=== PATIENT | female | born 2000 | race Caucasian/White ===

== ENCOUNTER 2022-02-05 17:56 | Inpatient (IN) ==
[2022-02-05] MEDS ORDERED: ACETAMINOPHEN 325 MG TAB PO STA (18:09)
[2022-02-05] MEDS ORDERED: SODIUM CHLORIDE 0.9% 500 ML IV STA (18:10)
[2022-02-05] MEDS ORDERED: ACETAMINOPHEN 325 MG TAB ONE (20:43)
[2022-02-05 21:27] LABS: Alanine Aminotransferase 9 U/L (7-52); Albumin Globulin Ratio 1.4 (0.9-2); Albumin Level 4.5 gm/dl (3.4-5.0); Alkaline Phosphatase 64 U/L (34-104); Anion Gap 12 (3-11); Aspartate Aminotransferase 14 U/L (13-39); Bilirubin,Total 0.6 mg/dl (0.2-1.0); Blood Urea Nitrogen 8 mg/dl (6-23); Calcium 9.1 mg/dl (8.5-10.1); Carbon Dioxide 21 mmol/L (21-32); Chloride 100 mmol/L (98-107); Est GFR (African American) 122.2 ml/min; Est GFR (Non-African American) 105.4 ml/min; Globulin 3.3 gm/dl (2.5-4.0); Glucose 90 mg/dl (70-99(Fasting)); Potassium 3.6 mmol/L (3.5-5.1); Sodium 133 mmol/L (136-145); Total Protein 7.8 gm/dl (6.0-8.3)
[2022-02-05] MEDS ORDERED: SODIUM CHLORIDE 0.9% 1000ML 2,000 ML IV ONE (21:30)
[2022-02-05] MEDS ORDERED: KETOROLAC TROMETHAMINE 15 MG/ML VIAL IV ONE (21:30)
[2022-02-05 21:34] LABS: Basophils # (auto) 0.02 K/uL (0-0.2); Basophils % (auto) 0.2 %; Hematocrit (blood only) 38.4 % (34.1-44.9); Immature Granulocytes # (auto) 0.04 K/uL (0.00-0.02); Immature Granulocytes % (auto) 0.3 %; Lymphocytes # (auto) 1.01 K/uL (1.2-3.4); Lymphocytes % (auto) 8.3 %; Mean Corpuscular Hemoglobin 27.8 pg (25.0-34.0); Mean Corpuscular Hgb Conc 33.9 g/dL (32.0-36.0); Mean Corpuscular Volume 82.2 fL (80.0-100.0); Mean Platelet Volume 11.2 fL (9.4-12.3); Monocytes # (auto) 0.99 K/uL (0.24-0.82); Monocytes % (auto) 8.2 %; Neutrophils # (auto) 10.08 K/uL (1.4-6.5); Platelet Count 216 K/uL (130-400); RDW Standard Deviation 39.2 fL (36.4-46.3); Red Blood Count 4.67 M/uL (3.93-5.22); White Blood Count 12.14 K/ul (4.8-10.8)
[2022-02-05] MEDS ORDERED: ONDANSETRON INJ 2 MG/ML 2 ML VIAL IV STA (21:36)
[2022-02-05] MEDS ORDERED: OPTIRAY 350 100ml IV ONE (22:03)
[2022-02-05 22:05] LABS: Appearance Urine Clear (Clear); Bacteria Urine Automated Negative (Negative); Bilirubin Urine Negative (Negative); Blood Urine Negative (Negative); Color Urine Yellow; Epithelial Cell Urine Auto >30 /lpf (0-5); Glucose Urine UA Negative (Negative); Ketones Urine 3+ (Negative); Leukocyte Esterase Urine 1+ (Negative); Nitrite Urine Negative (Negative); Protein Urine Trace (Negative); RBC Urine Automated 0-4 /hpf (0-4); Specific Gravity Urine 1.024 (1.000-1.030); Urobilinogen Urine Negative (Negative); pH Urine 5.5 (4.5-7.5)
[2022-02-05 23:03] LABS: Pregnancy Test, Urine Negative (Negative)
[2022-02-05 23:09] LABS: Influenza A virus by PCR Negative (Neg); Influenza B virus by PCR Negative (Neg); RSV by PCR Negative (Neg)
[2022-02-05 23:12] LABS: SARS CoV2 RNA(COVID-19) InHosp POSITIVE (Negative)
--- NOTE | 2022-02-05 23:21 | History & Physical Report ---
Date of Service February 05, 2022 Assessment & Plan (1) Fever: Plan: Due to the patient's clinical presentation and CT scan findings she will be admitted to the hospital proceeding as follows: Is not entirely clear if the patient is suffering from acute appendicitis We will therefore make her n.p.o. -Analgesics we provided -Antipyretics will be provided -Antiemetics we provided -We will hydrate her with IV fluids -We will repeat labs in the morning -At the present time we will hold antibiotics as we do not want him mask any underlying processes that may not have declared themselves. Patient will be reevaluated in the morning and based on her clinical exam and repeat laboratories a determination will be made if patient warrants an appendectomy Concerning patient's COVID infection supportive care will be employed as the patient is not requiring supplemental oxygen and her pulse ox is 97% on room air and she is not in any respiratory distress. (2) Abdominal pain: (3) COVID: History of Present Illness Chief Complaint: Fever Primary Care Provider: NO PCP This is a 22-year-old female who presented to the emergency department [facility] to fevers and generalized abdominal pain. Patient says that approximately 4 days ago she began developing a scratchy throa t with some congestion. Over the past 24 hours the patient said that she began to have fevers. She also developed some nausea and vomiting over the past 24 hours and has some generalized abdominal pain. Concerning her abdominal pain when asked where the location was she pointed to the left upper quadrant. She does not note any modifying factors to her abdominal pain. She notes that she has never had any abdominal surgeries in the past. The patient also notes that she has had some upper respiratory symptoms which also began approximately 24 hours ago where she has noted a cough as well as some congestion and some slight shortness of breath. She notes that no close contacts have been ill. She did receive a COVID vaccination. She does note that she did have a COVID infection 1 month ago. She has not yet received a flu vaccine. In the emergency department the patient had labs and imaging which I independently reviewed. CT scan of the abdomen pelvis showed the patient had a mildly prominent appendix which measured approximately 8.4 mm in diameter. There are also some inflammatory groundglass density nodule seen in the left lower lobe measuring up to 8.5 mm in diameter. CBC revealed white blood cell count was 12.1. Hemoglobin, hematocrit, and platelet count were within the normal range. Chemistry profile showed sodium was 133 with a normal potassium. BUN and creatinine were both within the normal range. There is no elevation of patient's LFTs, bilirubin, or alkaline phosphatase. Urinalysis was not indicative of infection. Urine test was negative. The patient did test positive for COVID. I question the patient about additional medical problems she may suffer from. She says that she does not have any additional medical problems specifically stating she does not have asthma The patient notes that she has never had any abdominal surgeries but did have a cyst taken off of her right upper arm and has also had a wisdom teeth taken out The patient says that she currently smokes as she vapes. At the time of my interview the patient was resting comfortably in bed and she was in no distress. She was saturating 97% on room air. She did have a pulse of 98 which was regular. Her respirations were 18 and nonlabored. She was noted to be febrile with a temperature of 37.9. Her blood pressure was 109/66 Allergies Allergy/AdvReac Type Severity Reaction Status Date / Time pollen extracts Allergy Intermediate ITCHY Verified 02/05/22 21:21 EYES, SNEEZING, CONGESTION Home Medications Medication Instructions Recorded Confirmed Type cholecalciferol (vitamin D3) 25 25 mcg PO DAILY 02/05/22 02/05/22 History mcg (1,000 unit) chewable tablet (Vitamin D3) multivitamin 1 tab PO DAILY 02/05/22 02/05/22 History Past Med/Surg History Social History Smoking Status: Current every day smoker Tobacco Type: E-cigarettes / Vaping Second Hand Exposure: No; Do You Dip or Chew Tobacco: No; Hx Alcohol Use: Yes Alcohol type: hard liquor Hx Substance Use: No Preferred Language: Japanese Communication Ability: Effective [employer] Customer Experience Advisor Required: No Beliefs That Will Affect Care: None Current Living Situation: Other Current Living Situation Comment: apartment, college student, has roomates Other Information That Helps Us Care for You: No Feels Safe at Home: Yes Safety Concerns: Feels Safe At This Time Assistive Devices: Other Assistive Devices Comment: contacts Review of Systems Constitutional: + fever, + chills and + body aches Eyes: no eye pain Ear, Nose, Mouth, Throat: no ear pain Respiratory: + cough, + chest congestion and + dyspnea Cardiovascular: no chest pain Gastrointestinal: + abdominal pain, + nausea and + vomiting Genitourinary: no dysuria Musculoskeletal: no back pain Integumentary: no rash Neurologic: no localized weakness Physical Exam Constitutional: WD/WN, vitals as above Eyes: no conjunctival abnormality ENMT: Ears: no hearing impairment and no external ear abnormality Mouth: no oropharynx abnormality Neck: trachea midline Respiratory: normal respiratory effort, lungs clear to auscultation Slight decrease of breath sounds noted bases. There is no wheezing noted. Cardiovascular: Rate/Rhythm: regular rate and regular rhythm Vessels: do rsalis pedis pulses present Gastrointestinal (Abdomen): Abdomen is soft and nondistended. It is nonrigid. There is no rebound tenderness or guarding. The patient did exhibit pain with palpation in the left lower quadrant and the right lower quadrant over McBurney's point. Musculoskeletal: No calf tenderness Skin: no rashes Neurologic: moves all extremities Psychiatric: A+Ox3, euthymic affect Results & Data Results & Data ([facility]) Vital Signs (Past 12 Hours) Vital Signs Temp Pulse Pulse Resp BP BP Pulse Ox 02/05/22 21:49 37.9 C H 98 H 18 109/66 97 02/05/22 20:46 39.1 C H 02/05/22 20:36 100 02/05/22 20:36 116 H 14 107/60 100 02/05/22 18:04 37.4 C 128 H 16 118/81 99 O2 Del Method 02/05/22 21:49 Room Air 02/05/22 20:46 02/05/22 20:36 Room Air 02/05/22 20:36 Room Air 02/05/22 18:04 Room Air PG Care Time/CCT Total # of Minutes Spent Total Time Spent with Patient: Total time spent is greater than 50% in coordination of care (as documented) at patient's floor/unit and/or counseling patient: Coding Level of Care Code 59640 Initial Inpt Care Lvl 3 Diagnoses Fever R50.9 Abdominal pain R10.9 COVID U07.1
[2022-02-05] MEDS ORDERED: ACETAMINOPHEN 1,000 MG/100 ML VIAL IV PRN (23:33)
[2022-02-06] MEDS: LACTATED RINGER'S 1,000 ML IV SCH ×3 (00:07→21:07)
--- NOTE | 2022-02-06 00:07 | Emergency Department Note ---
Impression & Plan Abdominal pain, Fever, COVID, Viral URI, Cough, Pneumonitis ED Provider Note NAME: CLEVELAND OBRIEN AGE: 22 SEX: F : 2000 ARRIVES VIA: Walk-In INFORMANT: Patient ED PROVIDER(S): Tony Downing DO CHIEF COMPLAINT: fever HPI: Patient is a 22-year-old female who presents the ER for symptoms that started this past Friday. She admits to a sore throat cough, congestion, runny nose. Over the past 24 hours she has been having vomiting and upset stomach wi th nausea. She denies any dysuria urgency or frequency. She notes that she did have COVID back last month. Fevers have been high as 101. She has been taking Motrin but that has not been keeping her fevers down. She had a negative COVID, strep and flu for [facility]. ROS: See above HPI for pertinent positives & negatives. A total of 10 systems reviewed and were otherwise negative. PAST MEDICAL HISTORY:See Below PAST SURGICAL HISTORY:See Below FAMILY HISTORY:See Below SOCIAL HISTORY:See Below HOME MEDICATIONS:See Below ALLERGIES:See Below VITALS:See Below PHYSICAL EXAMINATION: GENERAL: Sitting up in bed, alert, obese, slightly diaphoretic, disheveled EYE EXAM: normal conjunctiva. PERRL and EOM's grossly intact. OROPHARYNX:mucous membranes are dry NECK: supple, no nuchal rigidity, no adenopathy, non-tender LUNGS: Clear to auscultation. Normal chest wall mechanics HEART: Tachycardic, S1 normal and S2 normal ABDOMEN: abdomen soft, mild tenderness in right lower quadrant, normo-active bowel sounds, no masses, no rebound or guarding. UPPER EXTREMITIES: upper extremities are grossly normal. LOWER EXTREMITIES: No pitting edema. NEURO EXAM: Normal sensorium, cranial nerves II-XII grossly intact, normal speech, no gross weakness of arms, no gross weakness of legs. MEDICAL DECISION MAKING: Patient is a 22-year-old female with no significant past medical history that presents the ER for the above-stated complaint. IV was established blood was obtained. Labs show leukocytosis of 12,000. No significant anemia. BMP with mild hyponatremia 133. LFTs bilirubin was unremarkable. UA does suggest dehydration with ketones. Was contaminated with multiple epithelial cells. Patient is COVID-positive. Influenza and RSV are negative. Question if this is secondary to infection about 4 weeks ago versus new infection. This is over a month from her last COVID infection. Do favor that this is likely a new COVID infection. Two views of the chest xrays were unremarkable. CT of her abdomen pelvis was performed she did have some abdominal pain with new vomiting today. CT showed an [address] also showed inflammatory changes in the left lower lobe will defer to Gen Surg for treatment as if 2/2 to covid this is viral but could also be a PNA. Pt was discussed with Clement Lyon for further evaluation. General surgery elected to admit her and observe her overnight. Patient was given IV fluids as well as IV Toradol. Held on ABX and will defer to Gen surg. Triage Nursing notes reviewed. Limited review of prior medical records performed Vital Signs: reviewed and remarkable for tachy and febrile Differential diagnosis: Differential diagnosis includes etiologies such as sepsis, UTI, pneumonia, metabolic, electrolyte abnormalities, cardiac sources, intracerebral event, toxicologic, neurological, as well as others were entertained. ER treatment provided: See below Diagnostics interpreted by me: ECG: Sinus tachycardia rate of 117 Normal axis No PVCs Nonspecific ST wave changes V2 and V3 QTC 46 Cardiac Monitoring: An order was placed for continuous cardiac monitoring. The monitor shows a rate of 114 with sinus rhythm. Laboratory studies: As stated above and show below. Imaging studies: CT of the chest showed large distended appendix with subtle infiltrates in the left lower lobe Chest x-ray as described above Consultation(s): Discussed with general surgery been started for further evaluation patient was admitted for further work-up Procedures: none Critical Care: None Past Med/Surg History Social History Smoking Status: Current every day smoker Tobacco Type: E-cigarettes / Vaping Preferred Language: Lao Feels Safe at Home: Yes Allergies Allergies Allergy/AdvReac Type Severity Reaction Status Date / Time pollen extracts Allergy Intermediate ITCHY Verified 02/05/22 21:21 EYES, SNEEZING, CONGESTION Home Meds Home Medications Medication Instructions Recorded Confirmed cholecalciferol (vitamin D3) 25 25 mcg PO DAILY 02/05/22 02/05/22 mcg (1,000 unit) chewable tablet (Vitamin D3) multivitamin 1 tab PO DAILY 02/05/22 02/05/22 Results & Data (ED) Vital Signs Vital Signs - 24 hr 02/05/22 18:04 02/05/22 20:36 02/05/22 20:36 Temperature 37.4 C Temperature Source Temporal Artery Scan Pulse Rate 128 H Pulse Rate [Finger] 116 H Pulse Rhythm Regular Pulse Rhythm [Finger] Regular Pulse Strength Normal Pulse Strength [Finger] Normal Respiratory Rate 16 14 Respiratory Effort / Characteristics Non-Labored Non-Labored Spontaneous Respiratory Depth Normal Normal Respiratory Pattern Regular Blood Pressure 118/81 Blood Pressure [Left Arm] 107/60 Blood Pressure Mean 93 Blood Pressure Mean [Left Arm] 75 Blood Pressure Position [Left Arm] Pulse Oximetry 99 100 100 Oxygen Delivery Method Room Air Room Air Room Air Sepsis Recent Fever Within 48 Hours No Sepsis New/Unexplained Change in Mental Status No Sepsis Action Taken by Nursing No Action Required 02/05/22 20:46 02/05/22 21:49 02/05/22 23:20 Temperature 39.1 C H 37.9 C H 37.1 C Temperature Source Oral Oral Oral Pulse Rate Pulse Rate [Finger] 98 H 98 H Pulse Rhythm Pulse Rhythm [Finger] Regular Pulse Strength Pulse Strength [Finger] Normal Respiratory Rate 18 12 Respiratory Effort / Characteristics Non-Labored Spontaneous Non-Labored Spontaneous Respiratory Depth Normal Normal Respiratory Pattern Regular Regular Blood Pressure Blood Pressure [Left Arm] 109/66 101/66 Blood Pressure Mean Blood Pressure Mean [Left Arm] 80 77 Blood Pressure Position [Left Arm] Sitting Pulse Oximetry 97 99 Oxygen Delivery Method Room Air Room Air Sepsis Recent Fever Within 48 Hours Sepsis New/Unexplained Change in Mental Status Sepsis Action Taken by Nursing Laboratory Data Result diagrams: 02/05/22 20:41 02/05/22 20:41 Lab Results 02/05/22 02/05/22 02/05/22 Range/Units 20:41 20:41 21:36 WBC 12.14 H (4.8-10.8) K/ul RBC 4.67 (3.93-5.22) M/uL Hgb 13.0 (12.0-16.0) g/dl Hct 38.4 (34.1-44.9) % MCV 82.2 (80.0-100.0) fL MCH 27.8 (25.0-34.0) pg MCHC 33.9 (32.0-36.0) g/dL RDW Std Deviation 39.2 (36.4-46.3) fL RDW Coeff of Lona 13.0 (11.5-14.5) % Plt Count 216 (130-400) K/uL MPV 11.2 (9.4-12.3) fL Immature Gran % (Auto) 0.3 % Neut % (Auto) 83.0 % Lymph % (Auto) 8.3 % [place] % (Auto) 8.2 % Eos % (Auto) 0.0 % Baso % (Auto) 0.2 % Neut # (Auto) 10.08 H (1.4-6.5) K/uL Lymph # (Auto) 1.01 L (1.2-3.4) K/uL [place] # (Auto) 0.99 H (0.24-0.82) K/uL Eos # (Auto) 0.00 (0-0.50) K/uL Baso # (Auto) 0.02 (0-0.2) K/uL Immature Gran # (Auto) 0.04 H (0.00-0.02) K/uL Sodium 133 L (136-145) mmol/L Potassium 3.6 (3.5-5.1) mmol/L Chloride 100 (98-107) mmol/L Carbon Dioxide 21 (21-32) mmol/L Anion Gap 12 H (3-11) BUN 8 (6-23) mg/dl Creatinine 0.80 (0.6-1.2) mg/dl Est Cr Clr Drug Dosing Not Reportable Est GFR ( Amer) 122.2 ml/min Est GFR (Non-Af Amer) 105.4 ml/min BUN/Creatinine Ratio 10.0 (10-20) Glucose 90 (70-99(Fasting)) mg/dl Calcium 9.1 (8.5-10.1) mg/dl Total Bilirubin 0.6 (0.2-1.0) mg/dl AST 14 (13-39) U/L ALT 9 (7-52) U/L Alkaline Phosphatase 64 (34-104) U/L Total Protein 7.8 (6.0-8.3) gm/dl Albumin 4.5 (3.4-5.0) gm/dl Globulin 3.3 (2.5-4.0) gm/dl Albumin/Globulin Ratio 1.4 (0.9-2) Urine Color Yellow Urine Appearance Clear (Clear) Urine pH 5.5 (4.5-7.5) Ur Specific [place] 1.024 (1.000-1.030) Urine Protein Trace H (Negative) Urine Glucose (UA) Negative (Negative) Urine Ketones 3+ H (Negative) Urine Blood Negative (Negative) Urine Nitrite Negative (Negative) Urine Bilirubin Negative (Negative) Urine Urobilinogen Negative (Negative) Ur Leukocyte Esterase 1+ H (Negative) Urine WBC (Auto) 1-5 (0-5) /hpf Urine RBC (Auto) 0-4 (0-4) /hpf U Hyaline Cast (Auto) 1-5 (0-5) /lpf U Epithel Cells (Auto) >30 H (0-5) /lpf Urine Bacteria (Auto) Negative (Negative) Urine Test (Negative) SARS-CoV-2 (PCR) (Negative) Influenza Type A (PCR) (Neg) Influenza Type B (PCR) (Neg) RSV (RT-PCR) (Neg) 02/05/22 02/05/22 Range/Units 21:36 21:36 WBC (4.8-10.8) K/ul RBC (3.93-5.22) M/uL Hgb (12.0-16.0) g/dl Hct (34.1-44.9) % MCV (80.0-100.0) fL MCH (25.0-34.0) pg MCHC (32.0-36.0) g/dL RDW Std Deviation (36.4-46.3) fL RDW Coeff of Lona (11.5-14.5) % Plt Count (130-400) K/uL MPV (9.4-12.3) fL Immature Gran % (Auto) % Neut % (Auto) % Lymph % (Auto) % [place] % (Auto) % Eos % (Auto) % Baso % (Auto) % Neut # (Auto) (1.4-6.5) K/uL Lymph # (Auto) (1.2-3.4) K/uL [place] # (Auto) (0.24-0.82) K/uL Eos # (Auto) (0-0.50) K/uL Baso # (Auto) (0-0.2) K/uL Immature Gran # (Auto) (0.00-0.02) K/uL Sodium (136-145) mmol/L Potassium (3.5-5.1) mmol/L Chloride (98-107) mmol/L Carbon Dioxide (21-32) mmol/L Anion Gap (3-11) BUN (6-23) mg/dl Creatinine (0.6-1.2) mg/dl Est Cr Clr Drug Dosing Est GFR ( Amer) ml/min Est GFR (Non-Af Amer) ml/min BUN/Creatinine Ratio (10-20) Glucose (70-99(Fasting)) mg/dl Calcium (8.5-10.1) mg/dl Total Bilirubin (0.2-1.0) mg/dl AST (13-39) U/L ALT (7-52) U/L Alkaline Phosphatase (34-104) U/L Total Protein (6.0-8.3) gm/dl Albumin (3.4-5.0) gm/dl Globulin (2.5-4.0) gm/dl Albumin/Globulin Ratio (0.9-2) Urine Color Urine Appearance (Clear) Urine pH (4.5-7.5) Ur Specific [place] (1.000-1.030) Urine Protein (Negative) Urine Glucose (UA) (Negative) Urine Ketones (Negative) Urine Blood (Negative) Urine Nitrite (Negative) Urine Bilirubin (Negative) Urine Urobilinogen (Negative) Ur Leukocyte Esterase (Negative) Urine WBC (Auto) (0-5) /hpf Urine RBC (Auto) (0-4) /hpf U Hyaline Cast (Auto) (0-5) /lpf U Epithel Cells (Auto) (0-5) /lpf Urine Bacteria (Auto) (Negative) Urine Test Negative (Negative) SARS-CoV-2 (PCR) POSITIVE A* (Negative) Influenza Type A (PCR) Negative (Neg) Influenza Type B (PCR) Negative (Neg) RSV (RT-PCR) Negative (Neg) Administered Medications Discontinued Medications Acetaminophen (Acetaminophen 325 Mg Tab) 650 mg PO NOW STA Stop: 02/05/22 18:10 Last Admin: 02/05/22 20:45 Dose: 650 mg Documented By: MYKEL Acetaminophen (Acetaminophen 325 Mg Tab) Confirm Administered Dose 650 mg .ROUTE .STK-MED ONE Stop: 02/05/22 20:44 Last Admin: 02/05/22 20:45 Dose: Not Given Documented By: MYKEL Sodium Chloride (Nss) 500 mls @ 999 mls/hr IV .Q31M STA Stop: 02/05/22 18:40 Last Infusion: 02/05/22 21:55 Dose: 0 mls/hr Documented By: Admin: 02/05/22 20:41 Dose: 999 mls/hr Documented By: MYKEL Sodium Chloride (Nss 1000ml) 2,000 mls @ 999 mls/hr IV .Q2H1M ONE Stop: 02/05/22 23:30 Last Admin: 02/05/22 21:44 Dose: 999 mls/hr Documented By: MYKEL Ioversol (Optiray 350 100ml) 81 ml IV ONCE ONE Stop: 02/05/22 22:04 Last Admin: 02/05/22 22:04 Dose: 81 ml Documented By: LALITA Ketorolac Tromethamine (Ketorolac Tromethamine 15 Mg/Ml Vial) 15 mg IV NOW ONE Stop: 02/05/22 21:31 Last Admin: 02/05/22 21:44 Dose: 15 mg Documented By: MYKEL Ondansetron HCl (Ondansetron Inj 2 Mg/Ml 2 Ml Vial) 4 mg IV NOW STA Stop: 02/05/22 21:37 Last Admin: 02/05/22 21:44 Dose: 4 mg Documented By: MYKEL Discharge Plan Visit Data Chief Complaint: Fever Stated Complaint: SORE THROAT, FEVER, CONGESTED ED Provider: Tony Downing Discharge Problem: Abdominal pain, Fever, COVID, Viral URI, Cough, Pneumonitis Forms Stand Alone Forms: [facility] Prescriptions Prescriptions: No Action multivitamin Tablet 1 tab PO DAILY cholecalciferol (vitamin D3) [Vitamin D3] 25 mcg (1,000 unit) Tablet,Chewable 25 mcg PO DAILY Referrals Referrals: [facility] [Primary Care Provider] -
[2022-02-06] MEDS ORDERED: Flu Vaccine (Fluarix) 0.5mL SYR (Standard Dose) IM ONE (06:00)
[2022-02-06 06:26] LABS: Basophils # (auto) 0.03 K/uL (0-0.2); Basophils % (auto) 0.3 %; Eosinophils # (auto) 0.02 K/uL (0-0.50); Eosinophils % (auto) 0.2 %; Hematocrit (blood only) 33.6 % (34.1-44.9); Hemoglobin 11.5 g/dl (12.0-16.0); Immature Granulocytes # (auto) 0.05 K/uL (0.00-0.02); Immature Granulocytes % (auto) 0.5 %; Lymphocytes # (auto) 1.24 K/uL (1.2-3.4); Lymphocytes % (auto) 11.5 %; Mean Corpuscular Hemoglobin 28.8 pg (25.0-34.0); Mean Corpuscular Hgb Conc 34.2 g/dL (32.0-36.0); Mean Platelet Volume 10.7 fL (9.4-12.3); Monocytes # (auto) 1.14 K/uL (0.24-0.82); Monocytes % (auto) 10.5 %; Neutrophils # (auto) 8.34 K/uL (1.4-6.5); Platelet Count 175 K/uL (130-400); RDW Coefficient of Variation 13.1 % (11.5-14.5); RDW Standard Deviation 40.1 fL (36.4-46.3); White Blood Count 10.82 K/ul (4.8-10.8)
[2022-02-06 07:07] LABS: BUN Creatinine Ratio 10.1 (10-20); Creatinine Clr Calc Pharmacy 143.1 ml/min; Est GFR (African American) 144.2 ml/min; Est GFR (Non-African American) 124.4 ml/min; Potassium 3.4 mmol/L (3.5-5.1)
--- NOTE | 2022-02-06 07:22 | XRay Report ---
XR chest 2V PA/lateral CLINICAL HISTORY: cough and fever TECHNIQUE: 2 views of the chest were obtained. Comparison: None available at the time of this dictation. FINDINGS: No lines and tubes are seen. The cardiomediastinal silhouette is normal. The lungs are clear. No evid ence of pleural effusion or pneumothorax. IMPRESSION: No acute abnormalities and in particular no evidence of pneumonia. ACT 112: Negative or not required by law. Electronically signed by: Yaw Roberts M.D. 02/06/2022 7:21 AM
--- NOTE | 2022-02-06 07:38 | CT Scan Report ---
ABDOMEN AND PELVIS CT WITH IV CONTRAST CT DOSE: 690.87 mGy.cm HISTORY: Acute upper abdominal pain with nausea, vomiting and fever vomiting fever TECHNIQUE: Multiaxial CT images of the abdomen and pelvis were performed following the IV administrat ion of 81 cc of Optiray, A dose lowering technique was utilized adhering to the principles of ALARA. COMPARISON STUDY: Chest radiograph of same day FINDINGS: Mild nodular consolidative and groundglass opacities of the left lung base. No pneumatosis or pneumoperitoneum. The spleen measures within the upper limits of normal in size at 13 cm. Unremark able pancreas, gallbladder, adrenal glands and liver. Patency of the hepatic and portal veins. Unremarkable kidneys. No hydronephrosis. Decompressed urinary bladder with wall thickening. Unremarka ble uterus and adnexa. Dominant left ovarian follicle. Small amount of free pelvic fluid. Unremarkabl e aorta and IVC. No lymphadenopathy. No bowel obstruction or bowel wall thickening. Mild colonic fecal retention. The appendix is fluid-fi lled and mildly dilated measuring up to 8 mm. Trace periappendiceal stranding. Unremarkable soft tiss ues. No acute fracture. IMPRESSION: 1. Fluid-filled mildly dilated appendix is suspicious for early acute appendicitis. Correlate with cl inical exam findings and laboratory analysis. 2. No pneumoperitoneum or abscess. 3. Mild patchy left lung base opacities are suggestive of pneumonia. 4. Small volume free pelvic fluid. ACT 112: Negative or not required by law. The above report was generated using voice recognition software. It may contain grammatical, syntax o r spelling errors. Electronically signed by: Hany Eastman M.D. 02/06/2022 7:35 AM
[2022-02-06] MEDS: ACETAMINOPHEN 325 MG TAB PO PRN ×3 (08:42→21:18)
[2022-02-06] MEDS ORDERED: SODIUM CHLORIDE 0.9% 1000ML 1,000 ML IV ONE (10:44)
--- NOTE | 2022-02-06 10:44 | Surgery Progress Note ---
Date of Service February 06, 2022 Assessment & Plan (1) Viral URI: (2) COVID: (3) Fever: Plan: On physical exam and clinically she has no evidence of appendicitis even though CT scan findings are suspicious for early appendicitis. Her only symptoms are upper respiratory. She does have a leukocytosis although this improved overnight without any antibiotics. She is still tachycardic with a high fever. I am going to keep her for IV fluids and symptom control. I want to keep her off of antibiotics. If she begins having any abdominal symptoms or if she gets a higher leukocytosis we may need to consider laparoscopy versus repeat CT scan or ultrasound tomorrow. I will let her start with some clear liquids and see how she does today. Continue IV fluids. (4) Pneumonitis: Admission and Anticipated Discharge Date Admission Date: February 05, 2022 Subjective Patient seen. She is telling me that she is feeling better than she was the last 2 days. Her main issue is sinus congestion and drainage. Her main issue over the past several days was fever as well as sore throat. She is currently denying any abdominal pain or nausea. Physical Exam Constitutional: WD/WN, vitals as above no acute distress and not ill appearing Eyes: PERRL, conjunctivae normal, anicteric sclerae EOM intact bilaterally ENMT: external ear and nose normal, oropharynx normal Ears: no hearing impairment Neck: trachea midline, no thyromegaly Respiratory: normal respiratory effort; no respiratory distress and does not use accessory muscles Cardiovascular: Rate/Rhythm: regular rate and regular rhythm Gastrointestinal (Abdomen): normal bowel sounds, soft, nontender, no hepatosplenomegaly No tenderness. Negative Rovsing sign. No pain at McBurney's point. No rebound. Skin: no rashes, warm and dry Psychiatric: Orientation: alert, oriented x 3 and cooperative Results & Data ([facility]) Vital Signs (Past 12 Hours) Vital Signs Temp Pulse Resp BP Pulse Ox O2 Del Method 02/06/22 08:41 39.1 C H 116 H 18 107/51 L 99 Room Air 02/06/22 03:01 Room Air 02/06/22 03:01 37 C 93 H 18 105/71 100 Room Air 02/06/22 01:05 Room Air 02/06/22 00:08 37 C 94 H 14 104/58 L 99 Room Air 02/05/22 23:20 37.1 C 98 H 12 101/66 99 Room Air PG Care Time/CCT Total # of Minutes Spent Total Time Spent with Patient: Total time spent is greater than 50% in coordination of care (as documented) at patient's floor/unit and/or counseling patient: Coding Level of Care Code 24072 Subseq Hosp Care Lvl 3 Diagnoses Viral URI J06.9 COVID U07.1 Fever R50.9 Pneumonitis J18.9
[2022-02-06] MEDS ORDERED: COUGH DROP (SUGAR FREE) LOZ 24 LOZ/1 BOX BUCCAL ONE (16:45)
[2022-02-06] MEDS: ONDANSETRON INJ 2 MG/ML 2 ML VIAL IV PRN (16:48)
[2022-02-07] MEDS ORDERED: ACETAMINOPHEN 1,000 MG/100 ML VIAL IV ONE (02:45)
[2022-02-07] MEDS: ONDANSETRON INJ 2 MG/ML 2 ML VIAL IV PRN ×2 (03:08→15:22)
[2022-02-07] MEDS: LACTATED RINGER'S 1,000 ML IV SCH ×4 (04:37→21:04)
--- NOTE | 2022-02-07 05:12 | Electrocardiogram Report ---
Test Reason : Blood Pressure : / mmHG Vent. Rate : 117 BPM Atrial Rate : 117 BPM P-R Int : 140 ms QRS Dur : 084 ms QT Int : 306 ms P-R-T Axes : 055 070 015 degrees QTc Int : 426 ms Poor data quality, interpretation may be adversely affected Sinus tachycardia Nonspecific ST and T wave abnormality Abnormal ECG No previous ECGs available Confirmed by Kendall Velazquez ([id number]) on 02/07/2022 5:12:04 AM Referred By: REFERRED SELF Confirmed By:Kendall Velazquez
[2022-02-07 06:29] LABS: Basophils # (auto) 0.02 K/uL (0-0.2); Basophils % (auto) 0.2 %; Eosinophils # (auto) 0.02 K/uL (0-0.50); Eosinophils % (auto) 0.2 %; Hematocrit (blood only) 32.6 % (34.1-44.9); Hemoglobin 10.8 g/dl (12.0-16.0); Immature Granulocytes # (auto) 0.03 K/uL (0.00-0.02); Immature Granulocytes % (auto) 0.3 %; Lymphocytes # (auto) 1.06 K/uL (1.2-3.4); Mean Corpuscular Hemoglobin 27.9 pg (25.0-34.0); Mean Corpuscular Hgb Conc 33.1 g/dL (32.0-36.0); Mean Corpuscular Volume 84.2 fL (80.0-100.0); Mean Platelet Volume 10.6 fL (9.4-12.3); Monocytes # (auto) 0.93 K/uL (0.24-0.82); Monocytes % (auto) 8.8 %; Neutrophils # (auto) 8.54 K/uL (1.4-6.5); Neutrophils % (auto) 80.5 %; Platelet Count 162 K/uL (130-400); Red Blood Count 3.87 M/uL (3.93-5.22)
[2022-02-07] MEDS: ACETAMINOPHEN 325 MG TAB PO PRN ×3 (10:15→23:05)
--- NOTE | 2022-02-07 12:38 | Surgery Progress Note ---
Date of Service February 07, 2022 Assessment & Plan (1) Viral URI: Plan: No clinical indications of appendicitis. White blood cell count now normal. No abdominal pain. I do believe her main issue is a systemic viral infection. We will continue supportive care in the form of IV fluids symptom control. We will add something for her loose bowel movements as well as her cough. Not ready for discharge yet. I did discuss care with her mother. (2) Cough: (3) Pneumonitis: (4) COVID: (5) Fever: Admission and Anticipated Discharge Date Admission Date: February 05, 2022 Subjective Patient seen. No new complaints. Primary complaints continue to be upper respiratory with congestion cough and fever. She continues to deny abdominal pain. She did have some diarrhea multiple last night. Physical Exam Constitutional: Alert. No acute distress. Appears fatigued. Eyes: PERRL, conjunctivae normal, anicteric sclerae EOM intact bilaterally ENMT: Dry mucous membranes Neck: trachea midline, no thyromegaly Respiratory: normal respiratory effort; no respiratory distress and does not use accessory muscles Cardiovascular: Regular rhythm. Sinus tachycardia. Gastrointestinal (Abdomen): Soft. Nontender. No guarding. No rebound. Skin: no rashes, warm and dry Psychiatric: Orientation: alert, oriented x 3 and cooperative Results & Data ([facility]) Vital Signs (Past 12 Hours) Vital Signs Temp Pulse Resp BP Pulse Ox O2 Del Method 02/07/22 12:29 39 C H 02/07/22 10:15 39.3 C H 02/07/22 08:52 38.1 C H 101 H 18 114/77 98 Room Air PG Care Time/CCT Total # of Minutes Spent Total Time Spent with Patient: Total time spent is greater than 50% in coordination of care (as documented) at patient's floor/unit and/or counseling patient: Coding Level of Care Code 03692 Subseq Hosp Care Lvl 2 Diagnoses Viral URI J06.9 Cough R05.9 Pneumonitis J18.9 COVID U07.1 Fever R50.9
[2022-02-07] MEDS: IBUPROFEN 200 MG TAB PO PRN ×2 (14:02→21:03)
[2022-02-07] MEDS ORDERED: SODIUM CHLORIDE 0.9% 1000ML 1,000 ML IV ONE (15:44)
[2022-02-07] MEDS: CHOLESTYRAMINE LIGHT 4 GM PKT PO SCH (21:03)
[2022-02-08] MEDS: ACETAMINOPHEN 325 MG TAB PO PRN ×2 (03:31→14:54)
[2022-02-08] MEDS ORDERED: ONDANSETRON 4 MG OD TAB PO PRN (03:43)
[2022-02-08] MEDS: IBUPROFEN 200 MG TAB PO PRN (04:32)
[2022-02-08 08:02] LABS: Basophils # (auto) 0.02 K/uL (0-0.2); Basophils % (auto) 0.3 %; Eosinophils # (auto) 0.06 K/uL (0-0.50); Eosinophils % (auto) 0.8 %; Hematocrit (blood only) 32.1 % (34.1-44.9); Hemoglobin 10.7 g/dl (12.0-16.0); Immature Granulocytes # (auto) 0.04 K/uL (0.00-0.02); Immature Granulocytes % (auto) 0.5 %; Lymphocytes # (auto) 1.01 K/uL (1.2-3.4); Lymphocytes % (auto) 13.4 %; Mean Corpuscular Hemoglobin 27.7 pg (25.0-34.0); Mean Corpuscular Hgb Conc 33.3 g/dL (32.0-36.0); Mean Corpuscular Volume 83.2 fL (80.0-100.0); Mean Platelet Volume 10.7 fL (9.4-12.3); Monocytes # (auto) 0.74 K/uL (0.24-0.82); Monocytes % (auto) 9.8 %; Neutrophils # (auto) 5.65 K/uL (1.4-6.5); Neutrophils % (auto) 75.2 %; Platelet Count 154 K/uL (130-400); RDW Coefficient of Variation 13.1 % (11.5-14.5); RDW Standard Deviation 39.5 fL (36.4-46.3); Red Blood Count 3.86 M/uL (3.93-5.22); White Blood Count 7.52 K/ul (4.8-10.8)
[2022-02-08 08:34] LABS: BUN Creatinine Ratio 4.6 (10-20); Creatinine Clr Calc Pharmacy 151.9 ml/min; Est GFR (African American) 147.1 ml/min; Est GFR (Non-African American) 126.9 ml/min; Potassium 3.2 mmol/L (3.5-5.1)
[2022-02-08] MEDS: CHOLESTYRAMINE LIGHT 4 GM PKT PO SCH (08:56)
--- NOTE | 2022-02-08 10:28 | Surgery Progress Note ---
Date of Service February 08, 2022 Assessment & Plan (1) COVID: Plan: Pt here with Covid, question of dilated appendix on CT scan. Otherwise no clinical findings of acute appendicitis WBC normal off abx. Abdominal exam benign Majority of symptoms appear related to viral illness. She continues to be febrile, receiving intermittent APAP/ibuprofen. Zofran for nausea IV fell out last night without success replacing at this time. She is tolerating some clear liquids at this time Discussed patient's hospitalization with the medicine physicians for their assistance If stable for discharge from their standpoint we are okay with that Patient continues to have symptoms regarding an upper respiratory infection. We discussed with medicine who recommends starting Zithromax. They feel she is stable for discharge. Certainly from a surgical perspective there is nothing currently going on. Will discharge home today with Zithromax. She should follow-up with her PCP early next week. Admission and Anticipated Discharge Date Admission Date: February 05, 2022 Subjective Patient with continued respiratory complaints, cough, congestion, fevers. Diarrhea improving. No abdominal pain. Intermittent nausea with vomiting. Physical Exam Physical Exam: awake/alert Gastrointestinal (Abdomen): Percussion/Palpation: abdomen soft; abdomen nontender Results & Data ([facility]) Vital Signs (Past 12 Hours) Vital Signs Temp Pulse Resp BP Pulse Ox O2 Del Method 02/08/22 08:49 36.8 C 92 H 18 100/68 97 Room Air 02/08/22 06:16 37.3 C 02/08/22 04:32 39.1 C H 02/08/22 03:32 39.4 C H 02/08/22 00:05 39.4 C H 02/08/22 01:59 39.1 C H 02/07/22 23:04 39.3 C H PG Care Time/CCT Total # of Minutes Spent Total Time Spent with Patient: Total time spent is greater than 50% in coordination of care (as documented) at patient's floor/unit and/or counseling patient: Coding Level of Care Code 38952 Subseq Hosp Care Lvl 3 Diagnoses COVID U07.1
[2022-02-08] MEDS ORDERED: AZITHROMYCIN 250 MG TAB PO ONE (10:45)
--- NOTE | 2022-02-08 19:29 | Discharge Summary ---
Date of Service February 08, 2022 Admission HPI Per Admitting Provider This is a 22-year-old female who presented to the emergency department [facility] to fevers and generalized abdominal pain. Patient says that approximately 4 days ago she began developing a scratchy throat with some congestion. Over the past 24 hours the patient said that she began to have fevers. She also developed some nausea and vomiting over the past 24 hours and has some generalized abdominal pain. Concerning her abdominal pain when asked where the location was she pointed to the left upper quadrant. She does not note any modifying factors to her abdominal pain. She notes that she has never had any abdominal surgeries in the past. The patient also notes that she has had some upper respiratory symptoms which also began approximately 24 hours ago where she has noted a cough as well as some congestion and some slight shortness of breath. She notes that no close contacts have been ill. She did receive a COVID vaccination. She does note that she did have a COVID infection 1 month ago. She has not yet received a flu vaccine. In the emergency department the patient had labs and imaging which I independently reviewed. CT scan of the abdomen pelvis showed the patient had a mildly prominent appendix which measured approximately 8.4 mm in diameter. There are also some inflammatory groundglass density nodule seen in the left lower lobe measuring up to 8.5 mm in diameter. CBC revealed white blood cell count was 12.1. Hemoglobin, hematocrit, and platelet count were within the normal range. Chemistry profile showed sodium was 133 with a normal potassium. BUN and creatinine were both within the normal range. There is no elevation of patient's LFTs, bilirubin, or alkaline phosphatase. Urinalysis was not indicative of infection. Urine test was negative. The patient did test positive for COVID. I question the patient about additional medical problems she may suffer from. She says that she does not have any additional medical problems specifically stating she does not have asthma The patient notes that she has never had any abdominal surgeries but did have a cyst taken off of her right upper arm and has also had a wisdom teeth taken out The patient says that she currently smokes as she vapes. At the time of my interview the patient was resting comfortably in bed and she was in no distress. She was saturating 97% on room air. She did have a pulse of 98 which was regular. Her respirations were 18 and nonlabored. She was noted to be febrile with a temperature of 37.9. Her blood pressure was 109/66 Principal Diagnosis Pneumonia Discharge Exam In general she is awake and alert pleasant no distress. HEENT normocephalic atraumatic mucous membranes moist. Breathing unlabored, lungs show a degree of rhonchi base left, no wheezes no accessory muscle use. Some degree of coughing nonproductive. Cardio is regular with no rubs murmurs or gallops. Skin without rashes pallor or icterus. Neuro shows cranial nerves II through XII be grossly intact gross motor and sensory intact Discharge Data Allergies Allergy/AdvReac Type Severity Reaction Status Date / Time pollen extracts Allergy Intermediate ITCHY Verified 02/05/22 21:21 EYES, SNEEZING, CONGESTION Consultations 02/08/22 08:51 Consult Hospitalist Routine Ordered Studies 02/05/22 21:36 CT Abd and Pelvis [CT abd pelvis IV con only] Stat Hospital Course (1) Pneumonia: Asked to see by surgical teamthey have been following her for several days for possible appendicitis and felt her abdomen is quite benign, but was worried that her fever and viral illness may require further treatment. Evaluated patient in depth and at lengthdischarge instructions outlined our conversations quite well. I suspect she has a pneumonia, given that she had COVID about 6 weeks ago and had URI symptoms at the time, around the time of known exposure, I suspect the current PCR is more of a lingering positive. Since she is flu and RSV negative, while another viral pneumonia certainly possible, we discussed risk/benefit and I did wonder if she has a mild secondary bacterial overgrowth pneumonia superimposed which is causing her acute illnessafter discussing risk benefit, we all agreed to treat with antibiotics.*Safe to go homeshe was able to drink well enough to stay well-hydrated is hemodynamically stable, and after weighing options of initiating treatment here and ongoing observation versus going home, she opted to go home. See discharge instructions for further details, safe/stable for home, greater than 30 minutes. Total Time Total Time Spent Total Time Spent (In Minutes): Greater than 30 Discharge Plan Discharge Items Patient Disposition: Home - Self-Care Reason For Visit: FEVER, ABDOMINAL PAIN Discharge Diagnosis: covid abdominal pain Activity: Per Instructions section Lifting: Gradually increase as tolerated Bathing: No limitations Exercise/Sports: Gradually increase as tolerated Driving/Machine Use: Resume 1 day after discharge Non-emergency contact: Primary Care Provider Call non-emergency contact if: you have any medication questions, your symptoms worsen and your pain is not controlled Follow-up/Referrals: [facility] [Primary Care Provider] - (YOU NEED TO MAKE AN APPOINTMENT WITH [facility] WITHIN 7-10 BUSINESS DAYS FOR A HOSPITAL FOLLOW UP.) Diet: Regular Addtl Attending Provider Instructions: Pneumonia -As we discussed, it looks like the main thing causing the fevers cough/etc. is a pneumonia. The main question to sort out would be whether or not it was a viral versus a secondary bacterial pneumonia -Given that you had COVID about 6 weeks ago and had symptoms then, I am much more suspicious that your current COVID test is a "residual positive" rather than a new finding. Right now there are a ton of different viruses going around, but also given that you do not have COVID, flu, RSV clinically at this time, that is what makes me suspicious we may be seeing the beginnings of what we would call a "bacterial overgrowth pneumonia". -To that end, we will go ahead and treat for community-acquired pneumonia (most commonly this would be strep pneumoniae)which usually responds nicely to azithromycin. You got 500 mg today, take 250 mg starting tomorrow for 4 days. Note that it does tend to hang out "in your system" for about 5 days after the last dose as well. -As it relates to the fevers, if this really was a viral process all along, I would suspect that the fevers would start to go away somewhere in the next day or 2. If it truly is a bacterial overgrowth, it sometimes takes 2 to 3 days for fevers to break once we have started antibiotics. Either way, that creates a reasonable "line in the sand" that your fevers should be gone by Friday going into Friday. If they are not, I would definitely recommend being evaluated -The cough might take a month to go away. To that respect, there is not a ton that really helps quiet the cough, sometimes vocal rest will help given that irritated vocal cords can then become a cough trigger. Nausea -The nausea/poor oral intake is probably largely from the pneumoniait is very common whenever people have a pneumonia to lose their appetite. When things are viral, it is generally because a lot of the viruses that cause pneumonia also have a little bit of a "stomach bug" aspect to them, if it is bacterial, it would be more just the "malaise of being ill" as well as a bit of a cough/gag mechanism causing the nausea -The main important thing is staying hydrated. I would like you to keep track of fluid intakewe would like to see a minimum of 60 ounces a day, ideally more like 70-80 ounces. As long as you are able to do that, how much you eat for the next few days is less important. As we discussed, it generally takes weeks to get malnourished, but people can get dehydrated in a day. -To help blunt the nausea, we sent in a prescription for Zofran (ondansetron) you could use it up to 3 times a day as needed for nausea. It tends to be pretty clean as far as side effects if you need a lot of it, and obviously once the nausea gets better use it less and less -I also started you on famotidine (Pepcid) to help with the stomach as wellI found in my experience that a degree of acid suppression, even when the problem is not really reflux/indigestion, tends to help with the nausea. I would take it twice a day for now, but once your appetite is back to normal you could quit it right away Diarrhea/constipation -While it sounds "backwards" when you look at the images on your CAT scan, there is a decent amount of stool. I suspect your diarrhea is what we call "overflow diarrhea"where there is a little bit of a "traffic jam" and the soft or diarrhea stool is what is getting around the traffic jam. Right now, I think I would do nothing other than be aware. Over the next few days if you start to have worsening nausea or crampy abdominal painthen I would utilize something like MiraLAX (polyethylene glycol)and if you do need to use it, I would probably start with 3 capfuls altogether. (When you look at the label it makes it sound like 1 capful is a big dose, 1 capful is really more of a stool so ftener dose. For perspective sake, about 12 capfuls in a row would be a bit of a bowel prep for a colonoscopyso 3 capfuls is still at the low end of the spectrum, but for most young, healthy people it is enough to get things moving). Frequent illness -As we discussed, it is quite possible that getting sick several times a year, and finding yourself on antibiotics several times a year might just be "phase of life" problemsnot getting enough sleep, lots of stress, and tons of exposures with other students carrying different respiratory illnesses around all the time. At the same time, once you are better it would be pretty reasonable to have an chip unloader look at you at least once to screen for subtle/minor immune deficiencies. This could easily be done back home, or Dr. Petty locally is quite good. Again as we discussed, it is far better to do this whenever you have not been sick for a while, because an acute illness will skew your lab results. -More than likely you do not have any of those "hard line" immune deficiencies, and its more exposures to different infections over and over, and how we generally [facility] try at least to get the better part of 7 to 8 hours of sleep at night, and try to manage stress PCP -To avoid needing urgent care, it would not be unreasonable to establish [place], our family medicine residents generally do a really nice jobif you want, you could call [phone] and get set up as a patientgenerally then if you need seen for a sick call they are able to work people in same day a lot of the time Pending Studies at Discharge: No Stand-Alone Forms: [facility], Work/School Release, Smoking Cessation Medications and DC Order Prescriptions: New azithromycin [Zithromax] 250 mg tablet 250 mg PO DAILY 4 Days Qty: 4 0RF Rx Instructions: start on day 2 of therapy ondansetron 4 mg tablet,disintegrating 4 mg PO Q8H PRN (Reason: nausea and vomiting) Qty: 30 0RF famotidine 20 mg tablet 20 mg PO BID Qty: 60 0RF Continued multivitamin Tablet 1 tab PO DAILY cholecalciferol (vitamin D3) [Vitamin D3] 25 mcg (1,000 unit) Tablet,Chewable 25 mcg PO DAILY Discharge Orders: Discharge Order (Routine); Ordered 02/08/22 Ordered By: Toyn Mars Admission Data Admit Date/Time: 02/05/22 23:36 Attending Provider: John Suarez Admit Provider: John Suarez Primary Care Provider: [place] Other Providers: Tony Mars Other Interventions: Discharge Summary Assessment (RN) Last Done: 02/08/22 13:41 Coding Level of Care Code D/C DAY MANAGEMENT >30 MINS Diagnoses Pneumonia J18.9
== END 2022-02-08 15:55 | disposition home or self-care (01) | DRG 193 ==
LOC: ED 17:56 → 3N 23:36